=== PATIENT | female | born 1960 | race Caucasian/White ===

== ENCOUNTER → 2018-01-03 06:25 | Outpatient (CLI) | payer MEDICARE, SELFPAY | PROVIDERS: Family Provider Family Medicine; PCP Family Medicine; Visit Provider Surgery | DX: R69 Illness, unspecified (principal) ==

== ENCOUNTER 2018-01-04 06:15 | Day surgery (SDC) | payer MEDICARE, MEDICAID, SELFPAY ==
--- NOTE | 2018-01-03 21:29 | HP.PCM_ITS ---
History and Physical Date of Admission: 01/04/18 HISTORY OF PRESENT ILLNESS 57 year old woman presents for evaluation for a TBSE. She has concerns about an enlarging soft tissue mass on her left temporal parietal scalp that has increased in size over the last several months. She denies any trauma. She denies any recent infection. She has noticed a small amount of alopecia over the soft tissue mass. There is a lesion right shoulder that has increased in size as well over the last several months. It has developed irregular borders. There has been no trauma and no bleeding. She has enlarging lesions on her right lower lateral eyelid and left lower lateral eyelid as well. She denies any visual problems. She denies any trauma. She has also noted increasing lesions on her right forearm and left forearm that have increased in size over the last several months and have developed irregular borders. She denies any infection or bleeding. She denies any trauma. She presents at this time for further evaluation and treatment. PAST MEDICAL HISTORY Arthritis. Asthma. Back pain. Calcium issues. Colon cancer. Chronic headaches. Epilepsy. GERD (gastroesophageal reflux disease). Heart disease. Depression. Pneumonia. Thyroid cancer. Vitamin deficiency. High blood pressure. Chemotherapy and radiation therapy for colon cancer. Chemotherapy and radiation therapy for thyroid cancer. PAST SURGICAL HISTORY colon cancer surgery with chemotherapy and radiation therapy. hysterectomy with BSO. right knee scopes. thyroid cancer surgery with chemotherapy and radiation therapy. ALLERGIES clarithromycin [From Biaxin]. cortisone [Cortisone]. levofloxacin [From Levaquin]. codeine. levetiracetam [From Keppra]. promethazine HCl [From Phenergan]. SODIUM PENTATHOL. MEDICATIONS Calcitriol [Calcitriol]. Divalproex Sodium [Depakote]. Lamotrigine [Lamotrigine]. Levothyroxine [Synthroid]. Omeprazole [Omeprazole]. Valsartan [Diovan]. FAMILY HISTORY Positive for skin cancer. Mother - Anemia, Respiratory disease, Skin cancer, Suicide attempt, Asthma, Arthritis, History of blood transfusion, Cancer, Depression, Heart disease, High cholesterol, History of psychiatric care Father - Asthma, Arthritis, Bowel disease, Colon cancer, Heart disease, Hypertension, High cholesterol, CVA (cerebral vascular accident) Daughter - Anemia, Anxiety, Asthma, Arthritis, Bleeding disorder, Depression, History of psychiatric care, Skin cancer, Suicide attempt Grandmother - Skin cancer SOCIAL HISTORY Smoking Status: Never smoker alcohol intake: never substance use type: does not use REVIEW OF SYSTEMS General - Denies fever, and weight loss. Has fatigue. ENT - Denies nasal congestion and sore throat. Eyes - Denies glaucoma and cataracts. Endocrine - Has thyroid disease. Has heat and cold intolerance. Skin - Has enlarging lesions left temporal parietal scalp, right shoulder, bilateral lower eyelids, right forearm, and left forearm. Musculoskeletal - Has joint pain, joint stiffness, weakness of muscles and joints, back pain, and arthritis. Neuro - Has headaches. Cardiovascular - Has chest pain. Has fatigue. Denies shortness of breath with exertion. Psych - Has depression. Denies anxiety. Has claustrophobia. Respiratory - Has shortness of breath, sleep apnea, asthma. Denies cough. Gastrointestinal - Denies nausea and vomiting. Has diarrhea and constipation. Hematologic - Denies abnormal bruising and bleeding. Genitourinary - Denies hematuria and urinary frequency. PHYSICAL EXAMINATION General - Alert and oriented. HEENT - PERRL. EOMI. Throat is clear. On the left temporal parietal scalp is a 12 mm soft tissue mass. Mobile. Mild alopecia. No evidence of infection. No ulceration. Mass is nontender. On the right lower lateral eyelid is a 5 mm lesion that is slightly raised in configuration. No ulceration. Has irregular borders. Lesion is nontender. On the left lower lateral eyelid is a 4 mm lesion that is slightly raised in configuration. No ulceration. Has irregular borders. Lesion is nontender. Neck - Supple and nontender. No cervical adenopathy. No suspicious lesions noted. Lungs - Clear to auscultation. Heart - Regular rate and rhythm. Abdomen - Soft and nondistended. Extremities - FROM. No axillary adenopathy. No axillary adenopathy. On the right shoulder is a lesion that measures 6 mm. It is slightly raised in configuration. Has irregular borders. No ulceration. Lesion is nontender. On the dorsal aspect right forearm is a 6 mm lesion that is slightly raised in configuration. Has irregular borders. No ulceration. Lesion is nontender. On the dorsal ulnar aspect left forearm is a 1 cm lesions cluster that are slightly raised in configuration. Has irregular borders. No ulceration. Lesions cluster are nontender. Back - No suspicious lesions noted. Neuro - CN II - XII grossly intact. ASSESSMENT 1. 12 mm soft tissue mass left temporal parietal scalp. 2. 6 mm lesion right shoulder. 3. 5 mm lesion right lower lateral eyelid. 4. 4 mm lesion left lower lateral eyelid. 5. 6 mm lesion dorsal aspect right forearm. 6. 1 cm lesions cluster dorsal ulnar aspect left forearm. 7. Family history of skin cancer. PLAN Recommend excision of this soft tissue mass on her left temporal parietal scalp. Depending on how much skin needs to be removed will determine if a skin flap or a skin graft is necessary. Will send tissue to Pathology for analysis to rule out carcinoma. Discussed with the patient that some degree of alopecia may occur after surgery on her scalp. She is aware of that possibility and wishes to proceed. Recommend excision of the lesions on her right shoulder, bilateral lower eyelids , dorsal right forearm, and dorsal ulnar left forearm and send them to Pathology for analysis to rule out carcinoma. If carcinoma is present, then further excision will be done with skin flap or skin graft reconstruction. Surgery will be done on an outpatient basis under local anesthesia and IV sedation. Patient was informed of the risks and complications of the procedure including alternatives to surgery. These were discussed with her personally. She voices understanding and wishes to proceed. Some of the risks and complications were included in a form from the [employer].
[2018-01-04 07:01] VITALS: BP 155/91; PULSE 73; RESP 16; TEMP 35.9; O2SAT 95; BMI 39.0
--- NOTE | 2018-01-04 08:00 | LES_PTH ---
PATIENT: BOYD VELEZ LOC: [facility] [place] U#:[id number] AGE/SX: 57/F ROOM: RE01/04/[address]: Dr. Dm Albert MD : 1960 BED: DIS: 01/04/2018 SPEC #: [id number] RECD: 01/04/18 10:27 STATUS: SEBASTIANPeter JACKY #: [id number] MIAH: 01/04/18 08:[address]: Dm Albert DEPT: SURGICAL PATHOLOGY RECD BY: Tanvir Hannon ENTERED: 01/04/18 12:19 SP TYPE: Lesion OTHR DR: Out of Town Doctor Tissues: A - Skin of forearm, NOS B - Skin of scalp, NOS C - Skin of eyelid, NOS D - Skin of eyelid, NOS E - Skin of upper extremity and shoulder Procedures: Surgery Specimen Level III Surgery Specimen Level IV HEADER OPERATION: Excision soft tissue mass left temporal scalp, lesions bilateral lower eyelid PRE-OP DIAGNOSIS: 12 mm soft tissue mass left temporal parietal scalp; 6 mm cutaneous horn lesion right shoulder, 5 mm lesion right lower lateral eyelid; 4 mm lesion left lower lateral eyelid; 6 mm lesion dorsal aspect right forearm; 1 cm lesion cluster dorsal ulnar aspect left forearm; family history skin cancer TISSUE SUBMITTED: A ? Right forearm lesion, B ? Scalp lesion, C ? Left lower lateral eyelid lesion, D ? Right lower lateral eyelid lesion, E ? Right shoulder lesion MICROSCOPIC DIAGNOSIS A. Right forearm lesion, shave biopsy: Actinic keratosis, hypertrophic type. B. Scalp lesion, biopsy: Trichilemmal cyst. C. Left lower lateral eyelid lesion, biopsy: Actinic keratosis. D. Right lower lateral eyelid lesion, biopsy: Actinic keratosis with seborrheic keratosis-like features. E. Right shoulder lesion, biopsy: Actinic keratosis, hypertrophic type. SJ:valerie 01/05/18 MICROSCOPIC DESCRIPTION Slides are reviewed. GROSS DESCRIPTION A - Received in fixative is one container labeled with the patient's name and designated right forearm lesion. The specimen consists of a shave biopsy of kwong-white skin measuring 0.7 x 0.5 x 0.1 cm. The specimen is inked and submitted entirely in one cassette. It will be sectioned at the time of embedding. B - Received in fixative is one container labeled with the patient's name and designated scalp lesion. The specimen consists of a nodular piece of kwong, indurated tissue measuring 1.2 x 1 x 0.5 cm. The specimen is inked, serially sectioned and submitted entirely in one cassette. C - Received in fixative is one container labeled with the patient's name and designated left lower lateral eyelid lesion. The specimen consists of one irregular fragment of kwong-light brown skin that measures 0.4 x 0.2 x 0.1 cm. The specimen is totally submitted in one cassette. D - Received in fixative is one container labeled with the patient's name and designated right lower lateral eyelid lesion. The specimen consists of a piece of kwong to light-brown skin measuring 0.5 x 0.2 x 0.2 cm. The specimen is totally submitted in one cassette. E - Received in fixative is one container labeled with the patient's name and designated right shoulder lesion. The specimen consists of a piece of kwong-brown skin measuring 0.8 x 0.5 x 0.1 cm. The specimen is inked and submitted entirely in one cassette. It will be serially sectioned at the time of embedding. / SJ:rg 01/04/18 TC:5 CPT: 75122 x4, 39304
[2018-01-04] MEDS: Mupirocin Ointment 22gm Tube 1 APPLIC (08:45)
[2018-01-04] MEDS: Silver Nitrate (BKC) 1 EACH (08:49)
--- NOTE | 2018-01-04 08:57 | OP.PN_ITS ---
Immediate Post-Op Note Date of Procedure: 01/04/18 Primary Surgeon/Physician: Dm Albert yard coordinator: None Pre-Operative Diagnosis: 1. 12 mm soft tissue mass left temporal parietal scalp. 2. 6 mm lesion right shoulder. 3. 5 mm lesion right lower lateral eyelid. 4. 4 mm lesion left lower lateral eyelid. 5. 6 mm lesion dorsal aspect right forearm. 6. Family history of skin cancer. Post-Operative Diagnosis: Same. Surgery/Procedure Performed:: 1. Excision 12 mm soft tissue mass left temporal parietal scalp. 2. Intradermal excision 6 mm lesion right shoulder. 3. Excision 5 mm lesion right lower lateral eyelid. 4. Excision 4 mm lesion left lower lateral eyelid. 5. Intradermal excision 6 mm lesion dorsal aspect right forearm. Description of Surgical Findings:: 57 year old woman presents for evaluation for a TBSE. She has concerns about an enlarging soft tissue mass on her left temporal parietal scalp that has increased in size over the last several months. She denies any trauma. She denies any recent infection. She has noticed a small amount of alopecia over the soft tissue mass. There is a raised, cutaneous horn like lesion right shoulder that has increased in size as well over the last several months. It has developed irregular borders. There has been no trauma and no bleeding. She has enlarging lesions on her right lower lateral eyelid and left lower lateral eyelid as well. She denies any visual problems. She denies any trauma. She has also noted increasing lesions on her right forearm and left forearm that have increased in size over the last several months and have developed irregular borders. She denies any infection or bleeding. She denies any trauma. Today the patient underwent excision 12 mm soft tissue mass left temporal parietal scalp and intradermal excision 6 mm lesion right shoulder and excision 5 mm lesion right lower lateral eyelid and excision 4 mm lesion left lower lateral eyelid and intradermal excision 6 mm lesion dorsal aspect right forearm. Estimated Blood Loss: 5 ml. Specimen's removed: 1. Soft tissue mass left temporal parietal scalp to Pathology. 2. Right shoulder lesion to Pathology. 3. Right lower lateral eyelid lesion to Pathology. 4. Left lower lateral eyelid lesion to Pathology. 5. Lesion dorsal aspect right forearm to Pathology. Drains: None. Type of Anesthesia:: Local MAC - xylocaine with epinephrine and IV sedation. - Admit VTE Documentation VTE Present on Admission: No VTE Mechan Device Prophylaxis: SCD's VTE Pharm Prophylaxis ordered?: No
[2018-01-04 09:07] VITALS: BP 151/73; BP 155/91; PULSE 65; RESP 16; TEMP 36.5; O2SAT 97
--- NOTE | 2018-01-04 09:09 | PCM.DC ---
You will use the following diet at home:: No restrictions Discharge Activity: May not drive while taking narcotic pain medications., May Shower - in two days., - - keep head elevated. no heavy lifting. May shower in (days): 2 May resume sexual activity in: No Restrictions Ice area for (Minutes): 5 - as needed for facial swelling. Weight Bearing Status: Weight bearing as tolerated Lifting Restrictions: 20 lbs. Keep extremity elevated above heart level: - - elevate head. Call your doctor if your incision/area has: Continuous Slow Oozing, Sudden Increased Bleeding, Increased Pain/ Swelling, Increased Redness, Foul Smelling Discharge, Swelling at the incision site Call your doctor if you observe: Fever of 101 or Higher, Coldness, Increased Pain, Shortness of breath, Chest pain, Calf discomfort, Uncontrolled pain Suture Line Care: - - apply antibiotic ointment to suture lines daily. Cleanse incision/area with: - - may get incisions wet in the shower in two days. Allergies/Adverse Reactions: Allergies clarithromycin [From Biaxin] Allergy (Verified 01/04/18 07:00) Rash cortisone [Cortisone] Allergy (Verified 01/04/18 07:00) Swelling levofloxacin [From Levaquin] Allergy (Verified 01/04/18 07:00) Hives Sulfa (Sulfonamide Antibiotics) Allergy (Verified 01/04/18 07:00) Rash codeine Adverse Reaction (Verified 01/04/18 07:00) Nausea/Vom/Diarrhea fluticasone [From Advair Diskus] Adverse Reaction (Verified 01/04/18 07:00) ,headache, heart races levetiracetam [From Keppra] Adverse Reaction (Verified 01/04/18 07:00) Other promethazine HCl [From Phenergan] Adverse Reaction (Verified 01/04/18 07:00) Other salmeterol [From Advair Diskus] Adverse Reaction (Verified 01/04/18 07:00) ,headache, heart races SODIUM PENTATHOL Adverse Reaction (Uncoded 01/04/18 07:00) Other Medications to take at Discharge Calcitriol 0.5 mcg PO DAILY 09/09/13 Lamotrigine 150 mg PO DAILY 09/09/13 Levothyroxine [Synthroid] 175 mcg PO DAILY 09/09/13 Omeprazole 40 mg PO DAILY 09/09/13 Amlodipine [Norvasc] 5 mg PO DAILY 12/28/17 Metoprolol Succinate 50 mg PO DAILY 12/28/17 Clindamycin HCl [Cleocin] 300 mg PO TID #15 cap 01/04/18 Oxycodone HCl/Acetaminophen [Percocet 5/325] 1 tab PO 4X/DAY PRN PRN 5 Days #20 tab 01/04/18 The following prescriptions were given: Oxycodone HCl/Acetaminophen [Percocet 5/325] 1 tab PO 4X/DAY PRN PRN 5 Days #20 tab PRN Reason: Pain Clindamycin HCl [Cleocin] 300 mg PO TID #15 cap Primary Care Physician: [facility] Doctor,Out of [Primary Care Provider] - Test Results: Test results from this visit will be discussed in further detail at your follow-up appointment, if applicable. Please Follow Up With: Dm Albert MD When: one week. call [phone] for appt. Proposed Discharge Date: 01/04/18
[2018-01-04 09:12] VITALS: BP 146/76; BP 155/91; PULSE 64; RESP 16; O2SAT 97
--- NOTE | 2018-01-04 09:12 | DCINST_ITS ---
You will use the following diet at home:: No restrictions Discharge Activity: May not drive while taking narcotic pain medications., May Shower - in two days., - - keep head elevated. no heavy lifting. May shower in (days): 2 May resume sexual activity in: No Restrictions Ice area for (Minutes): 5 - as needed for facial swelling. Weight Bearing Status: Weight bearing as tolerated Lifting Restrictions: 20 lbs. Keep extremity elevated above heart level: - - elevate head. Call your doctor if your incision/area has: Continuous Slow Oozing, Sudden Increased Bleeding, Increased Pain/ Swelling, Increased Redness, Foul Smelling Discharge, Swelling at the incision site Call your doctor if you observe: Fever of 101 or Higher, Coldness, Increased Pain, Shortness of breath, Chest pain, Calf discomfort, Uncontrolled pain Suture Line Care: - - apply antibiotic ointment to suture lines daily. Cleanse incision/area with: - - may get incisions wet in the shower in two days. Allergies/Adverse Reactions: Allergies clarithromycin [From Biaxin] Allergy (Verified 01/04/18 07:00) Rash cortisone [Cortisone] Allergy (Verified 01/04/18 07:00) Swelling levofloxacin [From Levaquin] Allergy (Verified 01/04/18 07:00) Hives Sulfa (Sulfonamide Antibiotics) Allergy (Verified 01/04/18 07:00) Rash codeine Adverse Reaction (Verified 01/04/18 07:00) Nausea/Vom/Diarrhea fluticasone [From Advair Diskus] Adverse Reaction (Verified 01/04/18 07:00) ,headache, heart races levetiracetam [From Keppra] Adverse Reaction (Verified 01/04/18 07:00) Other promethazine HCl [From Phenergan] Adverse Reaction (Verified 01/04/18 07:00) Other salmeterol [From Advair Diskus] Adverse Reaction (Verified 01/04/18 07:00) ,headache, heart races SODIUM PENTATHOL Adverse Reaction (Uncoded 01/04/18 07:00) Other Medications to take at Discharge Calcitriol 0.5 mcg PO DAILY 09/09/13 Lamotrigine 150 mg PO DAILY 09/09/13 Levothyroxine [Synthroid] 175 mcg PO DAILY 09/09/13 Omeprazole 40 mg PO DAILY 09/09/13 Amlodipine [Norvasc] 5 mg PO DAILY 12/28/17 Metoprolol Succinate 50 mg PO DAILY 12/28/17 Clindamycin HCl [Cleocin] 300 mg PO TID #15 cap 01/04/18 Oxycodone HCl/Acetaminophen [Percocet 5/325] 1 tab PO 4X/DAY PRN PRN 5 Days #20 tab 01/04/18 The following prescriptions were given: Oxycodone HCl/Acetaminophen [Percocet 5/325] 1 tab PO 4X/DAY PRN PRN 5 Days #20 tab PRN Reason: Pain Clindamycin HCl [Cleocin] 300 mg PO TID #15 cap Primary Care Physician: [facility] Doctor,Out of [Primary Care Provider] - Test Results: Test results from this visit will be discussed in further detail at your follow- up appointment, if applicable. Please Follow Up With: Dm Albert MD When: one week. call [phone] for appt. Proposed Discharge Date: 01/04/18
[2018-01-04 09:17] VITALS: BP 141/71; BP 155/91; PULSE 63; RESP 16; O2SAT 97
[2018-01-04 09:22] VITALS: BP 141/76; BP 155/91; PULSE 63; RESP 16; TEMP 36.3; O2SAT 96
[2018-01-04 10:13] VITALS: BP 155/91
--- NOTE | 2018-01-04 19:18 | PCM.OPRPT ---
Report of Operation Date of Procedure: 01/04/18 Pre-Operative Diagnosis: 1. 12 mm soft tissue mass left temporal parietal scalp. 2. 6 mm lesion right shoulder. 3. 5 mm lesion right lower lateral eyelid. 4. 4 mm lesion left lower lateral eyelid. 5. 6 mm lesion dorsal aspect right forearm. 6. Family history of skin cancer. Post-Operative Diagnosis: Same. Surgery/Procedure Performed:: 1. Excision 12 mm soft tissue mass left temporal parietal scalp with 12 mm layered closure. 2. Intradermal excision 6 mm lesion right shoulder. 3. Excision 5 mm lesion right lower lateral eyelid. 4. Excision 4 mm lesion left lower lateral eyelid. 5. Intradermal excision 6 mm lesion dorsal aspect right forearm. Description of Surgical Findings:: 57 year old woman presents for evaluation for a TBSE. She has concerns about an enlarging soft tissue mass on her left temporal parietal scalp that has increased in size over the last several months. She denies any trauma. She denies any recent infection. She has noticed a small amount of alopecia over the soft tissue mass. There is a raised lesion right shoulder that has increased in size as well over the last several months. It has developed irregular borders. There has been no trauma and no bleeding. She has enlarging lesions on her right lower lateral eyelid and left lower lateral eyelid as well. She denies any visual problems. She denies any trauma. She has also noted increasing lesions on her right forearm and left forearm that have increased in size over the last several months and have developed irregular borders. She denies any infection or bleeding. She denies any trauma. Recently the lesion on the left forearm has resolved. So will observe that area at this time. If the lesion were to recur in the future, then will re-evaluate for excision at that time. Patient was informed of the risks and complications of the procedure including alternatives to surgery. These were discussed with the patient personally. Patient voices understanding and wishes to proceed. Some of the risks and complications were included in a form from the [employer]. pickler helper: None Type of Anesthesia:: Local MAC - xylocaine with epinephrine and IV sedation. Specimen's removed: 1. Soft tissue mass left temporal parietal scalp to Pathology. 2. Right shoulder lesion to Pathology. 3. Right lower lateral eyelid lesion to Pathology. 4. Left lower lateral eyelid lesion to Pathology. 5. Lesion dorsal aspect right forearm to Pathology. Drains: None. Estimated Blood Loss (mL): 5 ml. Description of Procedure: Patient was taken to OR in supine position and was given IV sedation. The left temporal parietal scalp, bilateral eyelids, right shoulder and right forearm were prepped and draped in the usual fashion. SCD's were placed for DVT prophylaxis. Perioperative antibiotics were given intravenously. The lesions left temporal parietal scalp, bilateral lower eyelids, right shoulder, and right forearm were infiltrated with xylocaine and epinephrine. After waiting 5 minutes for the anesthetic to take effect, an oblique incision was made on the left temporal parietal scalp down into the subcutaneous tissue until the soft tissue mass was seen. It was well-encapsulated. It was dissected free at the level of the underlying fascia and sent to Pathology for analysis to rule out carcinoma. Hemostasis was obtained with electrocautery. The wound was irrigated with saline. The wound was closed in multiple layers with 5-0 Monocryl interrupted sutures for the deep dermis and subcutaneous tissue. The skin was approximated with 5-0 Monocryl simple interrupted sutures. Antibiotic ointment was applied to the incision. The lesions on the right lower lateral eyelid and left lower lateral eyelid were excised in an oblique fashion into the subcutaneous tissue and sent to Pathology for analysis to rule out carcinoma. They were excised with a 1 mm margin in all directions making it a 7 mm excision for the right lower lateral eyelid lesion and a 6 mm excision for the left lower lateral eyelid lesion. Hemostasis was obtained with electrocautery. The lower eyelid wounds were then closed with 6-0 fast absorbing simple interrupted sutures. Antibiotic ointment was applied. Next the lesions right shoulder and dorsal aspect right forearm were excised in an intradermal fashion and sent to Pathology for analysis to rule out carcinoma. Hemostasis obtained with gentle pressure and silver nitrate chemical cauterization. For the lesions that were excised, if carcinoma is present, then further excision will be done with skin flap or skin graft reconstruction. Patient tolerated the procedure well and was sent to PACU in satisfactory condition. Patient will be sent home on antibiotics and pain medication. She will keep her head elevated during the initial postop period. Patient will followup in a week for a wound check and for discussion of the pathology report. Grafts/Implants Used: None. - Complications None. - Admit VTE Documentation VTE Present on Admission: No VTE Mechan Device Prophylaxis: SCD's VTE Pharm Prophylaxis ordered?: No Code Visit Surgery Charges CPT - 39011 ICD-10 - R22.0, Z80.8 22741 R22.0, Z80.8 16659 D49.2, Z80.8 68519 D49.2, Z80.8 24327 D49.2, Z80.8 91814 D49.2, Z80.8
--- NOTE | 2018-01-05 17:19 | OP.PCM_ITS ---
Report of Operation Date of Procedure: 01/04/18 Pre-Operative Diagnosis: 1. 12 mm soft tissue mass left temporal parietal scalp. 2. 6 mm lesion right shoulder. 3. 5 mm lesion right lower lateral eyelid. 4. 4 mm lesion left lower lateral eyelid. 5. 6 mm lesion dorsal aspect right forearm. 6. Family history of skin cancer. Post-Operative Diagnosis: Same. Surgery/Procedure Performed:: 1. Excision 12 mm soft tissue mass left temporal parietal scalp with 12 mm layered closure. 2. Intradermal excision 6 mm lesion right shoulder. 3. Excision 5 mm lesion right lower lateral eyelid. 4. Excision 4 mm lesion left lower lateral eyelid. 5. Intradermal excision 6 mm lesion dorsal aspect right forearm. Description of Surgical Findings:: 57 year old woman presents for evaluation for a TBSE. She has concerns about an enlarging soft tissue mass on her left temporal parietal scalp that has increased in size over the last several months. She denies any trauma. She denies any recent infection. She has noticed a small amount of alopecia over the soft tissue mass. There is a raised lesion right shoulder that has increased in size as well over the last several months. It has developed irregular borders. There has been no trauma and no bleeding. She has enlarging lesions on her right lower lateral eyelid and left lower lateral eyelid as well. She denies any visual problems. She denies any trauma. She has also noted increasing lesions on her right forearm and left forearm that have increased in size over the last several months and have developed irregular borders. She denies any infection or bleeding. She denies any trauma. Recently the lesion on the left forearm has resolved. So will observe that area at this time. If the lesion were to recur in the future, then will re -evaluate for excision at that time. Patient was informed of the risks and complications of the procedure including alternatives to surgery. These were discussed with the patient personally. Patient voices understanding and wishes to proceed. Some of the risks and complications were included in a form from the [employer]. medical assisting program director: None Type of Anesthesia:: Local MAC - xylocaine with epinephrine and IV sedation. Specimen's removed: 1. Soft tissue mass left temporal parietal scalp to Pathology. 2. Right shoulder lesion to Pathology. 3. Right lower lateral eyelid lesion to Pathology. 4. Left lower lateral eyelid lesion to Pathology. 5. Lesion dorsal aspect right forearm to Pathology. Drains: None. Estimated Blood Loss (mL): 5 ml. Description of Procedure: Patient was taken to OR in supine position and was given IV sedation. The left temporal parietal scalp, bilateral eyelids, right shoulder and right forearm were prepped and draped in the usual fashion. SCD's were placed for DVT prophylaxis. Perioperative antibiotics were given intravenously. The lesions left temporal parietal scalp, bilateral lower eyelids, right shoulder, and right forearm were infiltrated with xylocaine and epinephrine. After waiting 5 minutes for the anesthetic to take effect, an oblique incision was made on the left temporal parietal scalp down into the subcutaneous tissue until the soft tissue mass was seen. It was well-encapsulated. It was dissected free at the level of the underlying fascia and sent to Pathology for analysis to rule out carcinoma. Hemostasis was obtained with electrocautery. The wound was irrigated with saline. The wound was closed in multiple layers with 5-0 Monocryl interrupted sutures for the deep dermis and subcutaneous tissue. The skin was approximated with 5-0 Monocryl simple interrupted sutures. Antibiotic ointment was applied to the incision. The lesions on the right lower lateral eyelid and left lower lateral eyelid were excised in an oblique fashion into the subcutaneous tissue and sent to Pathology for analysis to rule out carcinoma. They were excised with a 1 mm margin in all directions making it a 7 mm excision for the right lower lateral eyelid lesion and a 6 mm excision for the left lower lateral eyelid lesion. Hemostasis was obtained with electrocautery. The lower eyelid wounds were then closed with 6-0 fast absorbing simple interrupted sutures. Antibiotic ointment was applied. Next the lesions right shoulder and dorsal aspect right forearm were excised in an intradermal fashion and sent to Pathology for analysis to rule out carcinoma. Hemostasis obtained with gentle pressure and silver nitrate chemical cauterization. For the lesions that were excised, if carcinoma is present, then further excision will be done with skin flap or skin graft reconstruction. Patient tolerated the procedure well and was sent to PACU in satisfactory condition. Patient will be sent home on antibiotics and pain medication. She will keep her head elevated during the initial postop period. Patient will followup in a week for a wound check and for discussion of the pathology report. Grafts/Implants Used: None. - Complications None. - Admit VTE Documentation VTE Present on Admission: No VTE Mechan Device Prophylaxis: SCD's VTE Pharm Prophylaxis ordered?: No Code Visit Surgery Charges CPT - 36780 ICD-10 - R22.0, Z80.8 67282 R22.0, Z80.8 46469 D49.2, Z80.8 40522 D49.2, Z80.8 67915 D49.2, Z80.8 69050 D49.2, Z80.8
== END 2018-01-04 10:18 | disposition home or self-care (01) ==
LOC: SDC 06:16 → AC 06:18
PROVIDERS: Visit Provider Surgery
PROC: (CPT 11402; principal; 2018-01-04 07:45)
DX: L57.0 Actinic keratosis (principal); L72.12 Trichodermal cyst; L82.1 Other seborrheic keratosis; J45.909 Unspecified asthma, uncomplicated; M19.90 Unspecified osteoarthritis, unspecified site; K21.9 Gastro-esophageal reflux disease without esophagitis; Z79.899 Other long term (current) drug therapy; C73 Malignant neoplasm of thyroid gland; C18.9 Malignant neoplasm of colon, unspecified; I10 Essential (primary) hypertension; E78.00 Pure hypercholesterolemia, unspecified
CPT/HCPCS: 00300; 11402; 11422; 11441; 12031; 88304; 88305; J7120; C1876

== ENCOUNTER → 2018-05-06 16:43 | Outpatient (CLI) | payer MEDICARE, MEDICAID, SELFPAY ==
[2018-04-06 10:52] VITALS: BMI 39.9
--- NOTE | 2018-05-06 16:46 | CT_ITS ---
HISTORY: NASAL AIRWAY OBSTRUCTION TECHNIQUE: Helically acquired images were obtained of the paranasal sinuses. A radiation dose optimization technique was used for this scan. IV Contrast dosage and agent: None. COMPARISON: None FINDINGS: The paranasal sinuses are normally developed. Small 3-4 mm benign-appearing osteoma within the anterior ethmoid air cells on the right. The paranasal sinuses are otherwise clear. The ostiomeatal units are patent. Small bony spur of the mid septum which projects to the right. Nasal turbinates are not enlarged. No suspicious nasal airway obstruction is seen. Hyperostosis frontalis interna. CT/Sinus/Facial Bone IMPRESSION: 1. No significant findings. The paranasal sinuses are essentially clear. 2. 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 3. Small bony spur, not unusual, of the mid nasal septum on the right Individualized dose optimization techniques were used for this CT. at 0812 Reported and signed by: Raj Ramon MD Electronically Signed: Raj Ramon, at 8:11 EST Tel , Service support ,
== END ==
PROVIDERS: Family Provider Family Medicine Sports Medicine; PCP Family Medicine Sports Medicine; Referring Provider Surgery; Visit Provider Surgery
DX: J34.2 Deviated nasal septum (principal); S02.2XXS Fracture of nasal bones, sequela; J98.8 Other specified respiratory disorders; R06.00 Dyspnea, unspecified; J34.89 Other specified disorders of nose and nasal sinuses
CPT/HCPCS: 70486

== ENCOUNTER 2024-02-18 11:18 | Day surgery (SDC) | payer MEDICARE, MEDICAID, SELFPAY ==
[2024-02-18] VITALS (13 sets, daily range): BP systolic 112–137; BP diastolic 64–113; PULSE 65–81; RESP 14–94; TEMP 36.1–36.8; O2SAT 92–100; BMI 32.2
--- NOTE | 2024-02-18 11:35 | RAD_ITS ---
STUDY: X-RAY - RIGHT FOOT CLINICAL: Female, 63 years old. RIGHT FIRST METATARSAL ARTHRODESIS TECHNIQUE: 6 fluoroscopic view(s) of the foot. COMPARISON: None. FINDINGS: The images shows surgical instrumentation with an osteotomy deformity at the base of the proximal phalanx of the great toe with subsequent placement of a large metallic staple over the dorsum of the osteotomy defects. New surgical resection of the medial side of the head of the metatarsal bone of the great toe. Corrected hallux valgus deformity. Postoperative changes are seen in the soft tissues. The forefoot is included in the [id number]. The remaining metatarsal bones are unremarkable. RAD/Foot 2 Views IMPRESSION: 1. Status post surgical intervention of the great toe as above Electronically Signed: Lee Martinez MD at 9:12 EDT ,
--- NOTE | 2024-02-18 11:35 | PCM.PRE.AN2 ---
ASA Classification* ASA Classification ASA Classification: 3 Assessment & Plan Anesthesia* Anesthesia Assessment Anesthesia Assessment: Discussed sedation and/or anesthesia options, risks, benefits, and alternatives with patient/parents/legal guardian/POA. Questions invited. The patient/parents/legal guardian/POA seems to understand and agrees to proceed with anesthesia plan. Reviewed the physical assessment, medical history, allergy history and patient home medications list prior to surgery/procedure/anesthetic and documented any changes. Performed airway and anesthesia risk assessments. Anesthesia Type Anesthesia Type: General Anesthesia Focused Assessment* Airway Assessment Mouth opens: >3 cm Mallampati Score: II Focused Labs Anesthesia Preop lab: CBC WBC 9.3 K/mm3 (4.4-11.0) 02/06/16 15:28 RBC 4.20 M/mm3 (4.2-5.4) 02/06/16 15:28 Hgb 12.4 g/dl (12.0-15.0) 02/06/16 15:28 Hct 38.0 % (37-47) 02/06/16 15:28 Plt Count 344 K/mm3 (150-450) 02/06/16 15:28 CHEMISTRY Potassium 3.5 mmol/L (3.5-5.1) 02/06/16 15:28 Sodium 138 mmol/L (136-145) 02/06/16 15:28 BUN 13 mg/dL (7-18) 02/06/16 15:28 Creatinine 1.16 mg/dL (0.55-1.20) 02/06/16 15:28 Glucose 121 mg/dL (70-110) H 02/06/16 15:28 POC Glucose 103 mg/dL (70-110) 09/09/13 15:33 COAG Pre-Assessment Diagnosis/Proposed Procedure Planned Operative Procedure(s): ARTHRODESIS OF 1ST METATARSAL PHALANGEAL JOINT,BLAKE/CHEVRON BUNIONECTOMY OF RIGHT FOOT,SILVER BUNIONECTOMY OF RIGHT FOOT,SIRIA OSTEOTOMY OF RIGHT HALLUX WITH APPLICATION OF A AD SPLINT Anesthesia History Anesthesia History - medical device sales representative: Anesthesia History - medical device sales representative Hx Hospitalization No 02/08/24 13:56 Any Problems With Anesthesia Yes: N,V 02/08/24 13:56 Cholinesterase deficiency No 02/08/24 13:56 You/Your Family Experience No 02/08/24 13:56 fever (hyperthermia) with Relationship Recent Exposure to Contagious No 01/04/18 07:01 Disease Does patient have nerve No 02/08/24 13:56 stimulator Patient instructed to have device shut off --Does patient have Pacemaker or ICD? When Was Last Pacemaker Check QUESTION #4 FULL TEXT: You/Your Family Experience fever (hyperthermia) with Anesthesia Last Oral Intake Last Oral intake: Last Oral Intake NPO since Meds taken in AM with sips of water? Meds patient instructed to take am of surgery PONV PONV - medical device sales representative: PONV - medical device sales representative Female Yes 02/08/24 13:56 HX of Motion Sickness No 02/08/24 13:56 HX of N/V After Surgery Yes 02/08/24 13:56 Non-Smoker Yes 02/08/24 13:56 Duration of Surgery greater Yes 02/08/24 13:56 than 60 minutes Number of Risk Factors 4 02/08/24 13:56 PONV Score Severe Risk 02/08/24 13:56 Height & Weight Height & Weight: Anesthesia: Height & Weight Height 5 ft 6 in 01/20/24 10:23 Respiratory Assessment Respiratory Assessment - medical device sales representative: Respiratory Tract Infection Hx - medical device sales representative Hx Respiratory Tract Infection No 02/08/24 13:56 STOP Sleep Apnea STOP Sleep Apnea - medical device sales representative: STOP Sleep Apnea - medical device sales representative Hx Hypertension Yes: CONTROLLED WITH MED 02/08/24 13:56 Hx Sleep Apnea Yes 02/08/24 13:56 CPAP Yes: NONCOMPLIANT 02/08/24 13:56 BIPAP No 02/08/24 13:56 Do you snore loudly (louder than talking or can be heard Do you often feel tired/ fatigued/ sleepy during daytime? Has anyone observed you stop breathing during sleep? STOP Results Positive 02/08/24 13:56 QUESTION #5 FULL TEXT : Do you snore loudly (louder than talking or can be heard through closed doors)? Tobacco Use History Tobacco Use History - medical device sales representative: Tobacco Use History - medical device sales representative Tobacco Use Smoking Status Never smoker 02/08/24 13:56 Hx Tobacco Use No 02/08/24 13:56 Years Smoking Packs Smoked per Day Smoking Cessation Date was within the last 15 years Hx Smoking Cessation Date Hx Smoking Cessation Counseling Hematologic Medial History Hematologic Hx - medical device sales representative: Hematologic Medical Hx - harp repairer Hx of Blood Transfusion No 02/08/24 13:56 Hx of Transfusion in last 3 No 02/08/24 13:56 Months Date of Last Transfusion (if within last 3 months) Ever experience any problems No 02/08/24 13:56 with transfusion(s)? Specify any problems Hx of Preganancy in last 3 No 02/08/24 13:56 Months Nurse Filling Out Transfusion DSCHRIBER 02/08/24 13:56 & Questions: Date: 02/08/24 02/08/24 13:56 Time: 13:57 02/08/24 13:56 Patient unable to answer at this time (ie. confused, unrespo /Reproduction History /Reproductive History - medical device sales representative: /Reproductive Hx- medical device sales representative Hx Now No 02/08/24 13:56 Gestational Age (in weeks): EDC: Hx Hx Para Hx Section SAB No 02/08/24 13:56 Active Medications Active Medications: Current Medications Generic Name Dose Route Start Last Admin Trade Name Freq PRN Reason Stop Dose Admin Cefazolin Sodium 2 gm/ N/A 20 mls @ 400 mls/hr 02/18/24 13:00 IV 02/18/24 13:02 PREOP ONE Lactated Ringer's 1,000 mls @ 15 mls/hr 02/18/24 11:30 IV 02/21/24 06:09 .Q48H [facility] Protocol PFSH Medical History Loss of hearing Wears glasses Depression Anxiety Thyroid disease Anemia Restless legs Back pain Migraine headache CPAP (continuous positive airway pressure) dependence COPD (chronic obstructive pulmonary disease) Shortness of breath on exertion Neuropathy Leg cramps History of pain when walking Hypertension History of echocardiogram History of stress test Cardiology follow-up encounter History of rheumatic fever MVP (mitral valve prolapse) Epilepsy Seizures GERD (gastroesophageal reflux disease) Cancer Arthritis Home Medications ?Medication ?Instructions ?Recorded ?Last Taken ?Type calcitriol 0.5 mcg capsule 0.5 mcg PO DAILY 09/09/13 Unknown History lamotrigine 100 mg tablet 100 mg PO DAILY 09/09/13 Unknown History levothyroxine 175 mcg tablet 150 mcg PO DAILY 09/09/13 01/04/18 05:00 History 175 MCG omeprazole 40 mg capsule,delayed 40 mg PO DAILY 09/09/13 01/04/18 05:00 History release 40 MG metoprolol succinate 50 mg 50 mg PO DAILY 12/28/17 01/04/18 05:00 History tablet,extended release 24 hr 50 MG amlodipine 5 mg tablet 10 mg PO DAILY 04/06/18 Unknown History famotidine 40 mg tablet 40 mg PO QHS 02/08/24 Unknown History lamotrigine 200 mg tablet 200 mg PO QHS 02/08/24 Unknown History (Lamictal) Allergy/AdvReac Type Severity Reaction Status Date / Time phenytoin (From Dilantin) Allergy Severe Chest Verified 02/08/24 13:51 tightness adhesive tape Allergy Intermediate Rash Verified 02/08/24 13:51 indomethacin Allergy Intermediate PT UNSURE Verified 02/08/24 13:51 OF REACTION sertraline (From Zoloft) Allergy Intermediate PT UNSURE Verified 02/08/24 13:51 OF REACTION venlafaxine (From Effexor) Allergy Intermediate PT UNSURE Verified 02/08/24 13:51 OF REACTION clarithromycin (From Biaxin) Allergy Rash Verified 02/08/24 13:51 cortisone (Cortisone) Allergy Swelling Verified 02/08/24 13:51 levofloxacin (From Levaquin) Allergy Hives Verified 02/08/24 13:51 Sulfa (Sulfonamide Allergy Rash Verified 02/08/24 13:51 Antibiotics) lisinopril AdvReac Intermediate Other Verified 02/08/24 13:51 codeine AdvReac Nausea/Vom/ Verified 02/08/24 13:51 Diarrhea fluticasone (From Advair AdvReac ,headache, Verified 02/08/24 13:51 Diskus) heart races levetiracetam (From Keppra) AdvReac Other Verified 02/08/24 13:51 promethazine HCl (From AdvReac Other Verified 02/08/24 13:51 Phenergan) salmeterol (From Advair AdvReac ,headache, Verified 02/08/24 13:51 Diskus) heart races thiopental (From Pentothal) AdvReac Other Verified 02/08/24 13:51 Family History Mother Anemia Asthma Arthritis History of blood transfusion Cancer Depression Heart disease High cholesterol History of psychiatric care Respiratory disease Skin cancer Suicide attempt Father Asthma Arthritis Bowel disease Cancer Colon cancer Heart disease Hypertension High cholesterol CVA (cerebral vascular accident) Daughter Anemia Anxiety Asthma Arthritis Bleeding disorder Depression History of psychiatric care Skin cancer Suicide attempt Grandmother Skin cancer Surgical History History of esophagogastroduodenoscopy (EGD) Hx of colonoscopy Hx of thyroidectomy Hx of cervical spine surgery Hx of nasal septoplasty History of excision of lesion History of knee surgery History of hysterectomy Social History Smoking Status: Never smoker second hand exposure: No alcohol intake: never substance use type: does not use additional social history: DOES USE ASPIRIN AND IBUPROFEN Review of Systems (Anesthesia) ROS Narrative System reviewed and no additional complaints, except as documented.
[2024-02-18] MEDS: Lactated Ringers 1,000 ML 15 ML IV (11:58)
--- NOTE | 2024-02-18 12:39 | DCINST_ITS ---
Discharge Instructions Diet Discharge Diet: No restrictions Activity Discharge Activity: May Not Drive and May Shower (Utilize cast bag covering to keep dressings clean, dry, and intact to the right foot) Weight Bearing Status: Partial weight bearing (May be protective weightbearing to the right foot and CAM boot to tolerance) Keep extremity elevated above heart level: Right Leg (Elevate right leg at all times of rest for postoperative edema control) Dressing / Incision Call your doctor if you observe: Fever of 101 or Higher, Shortness of breath, Chest pain and Calf discomfort Change Dressing in: do not change dressing Remove Dressing in: leave in place till F/U (Do not change dressing. Leave dressing intact and physician will change dressing at first postoperative appointment.) Cleanse incision/area with: Do not get Incision Wet and Keep Dressing Clean & Dry (Please keep dressing clean, dry, and intact to the right foot and utilize cast bag when when showering) Follow Up Care Please Follow Up With: Jorge Deluca DPM When: Patient has first postoperative appointment with me in office early next week Test Results: Test results from this visit will be discussed in further detail at your follow- up appointment, if applicable. Discharge Plan Admission Attending Provider: Jorge Deluca Primary Care Provider: CHRISTA PORTER Instructions Print Language: Tamazight Discharge Orders/Prescriptions Prescriptions: New aspirin 325 mg capsule 325 mg PO DAILY Qty: 20 0RF doxycycline hyclate 100 mg capsule 100 mg PO DAILY Qty: 10 0RF oxycodone-acetaminophen 5-325 mg tablet 1 tab PO Q8H PRN (Reason: pain) 7 Days Qty: 28 0RF No Action levothyroxine 175 MCG tablet 150 mcg PO DAILY omeprazole 40 MG capsule,delayed release(DR/EC) 40 mg PO DAILY Patient Comments: calcitriol 0.5 MCG capsule 0.5 mcg PO DAILY Patient Comments: lamotrigine 100 MG tablet 100 mg PO DAILY Patient Comments: metoprolol succinate 50 MG tablet extended release 24 hr 50 mg PO DAILY Patient Comments: amlodipine 5 mg tablet 10 mg PO DAILY Patient Comments: TAKE 1 TABLET BY MOUTH EVERY DAY lamotrigine [Lamictal] 200 mg tablet 200 mg PO QHS famotidine 40 mg tablet 40 mg PO QHS Referrals / Follow Up: CHRISTA PORTER [Other] Disposition Disposition (needs filled in before D/C Order can be placed): Home, Self Care
--- NOTE | 2024-02-18 12:44 | RAD_ITS ---
HISTORY: Post-op Bunion procedure. TECHNIQUE: XR Foot Min 3 Views. COMPARISON: Spot images earlier same day. FINDINGS: BONES : Osteotomy and hardware placement at the base of the first proximal phalanx with decreased hallux valgus. Otherwise unremarkable. JOINTS: No dislocation. Mild degenerative change. SOFT TISSUES: Postoperative soft tissue swelling with overlying material. RAD/Foot min 3 Views IMPRESSION: Satisfactory alignment of the right foot status post right first toe postoperative change. Electronically Signed: Verito Valle MD at 11:03 EDT ,
[2024-02-18] MEDS: Cefazolin 2 GM in Syringe IV (13:17)
--- NOTE | 2024-02-18 15:14 | PCM.POST.ANE ---
Anesthesia: Postop Eval I Current Vital Signs Temperature: 97 F Pulse Rate: 71 Blood Pressure: 131/64 Respiratory Rate: 18 Pulse Ox: 95 Assessment Airway patent: Yes Spontaneous unlabored respirations: Yes nausea: No Vomiting: No Anesthesia Complication: No Fluid Hydration Crystalloid volume administer (ml): 1,000 Total IV fluid infused: 1,000 Progress Note Anesthesia document: Postop Eval 1 completed: No
--- NOTE | 2024-02-18 15:38 | POSTOPAN2_ITS ---
Anesthesia Postop Eval I Sum Postop Eval Completion status Anesthesia document: Postop Eval 1 completed: No Anesthesia Postop Eval I Summary Anesthesia Postop Eval I Summary: Anesthesia Postop Eval I: Assessment Summary Airway patent Yes 02/18/24 15:14 PORTFOLIO [email or web address] Spontaneous unlabored Yes 02/18/24 15:14 PORTFOLIO CONSULTANT.CSIR respirations Mental status nausea No 02/18/24 15:14 PORTFOLIO CONSULTANT.CSIR Vomiting No 02/18/24 15:14 PORTFOLIO CONSULTANT.CSIR Anesthesia Postop Eval I: Fluid Summary Crystalloid volume administer 1,000 02/18/24 15:14 PORTFOLIO CONSULTANT.CSIR (ml) Colloids volume administered ( ml) Blood Product volume administered (ml) Total IV fluid infused 1,000 02/18/24 15:14 PORTFOLIO CONSULTANT.CSIR Anesthesia Postop Eval I: Summary Notes Anesthesia Complication No 02/18/24 15:14 PORTFOLIO CONSULTANT.CSIR Anesthesia Complication Comment: Post-operative progress note Anesthesia: Postop Eval II Evaluation Mental status: Awake Pain Level: 2 nausea: No Vomiting: No Progress Note Post-operative progress note: Patient shivering. States its a seizure. Unlikely since patient is talking with us. Will give Ativan, Dilaudid and warm patient to see if it resolves. Complications Anesthesia Complication: No
--- NOTE | 2024-02-18 15:38 | PCM.POSTANE2 ---
Anesthesia Postop Eval I Sum Postop Eval Completion status Anesthesia document: Postop Eval 1 completed: No Anesthesia Postop Eval I Summary Anesthesia Postop Eval I Summary: Anesthesia Postop Eval I: Assessment Summary Airway patent Yes 02/18/24 15:14 RV [email or web address] Spontaneous unlabored Yes 02/18/24 15:14 RV [email or web address].CSIR respirations Mental status nausea No 02/18/24 15:14 RV [email or web address].CSIR Vomiting No 02/18/24 15:14 RV [email or web address].CSIR Anesthesia Postop Eval I: Fluid Summary Crystalloid volume administer 1,000 02/18/24 15:14 RV [email or web address].CSIR (ml) Colloids volume administered ( ml) Blood Product volume administered (ml) Total IV fluid infused 1,000 02/18/24 15:14 RV [email or web address].CSIR Anesthesia Postop Eval I: Summary Notes Anesthesia Complication No 02/18/24 15:14 RV [email or web address].CSIR Anesthesia Complication Comment: Post-operative progress note Anesthesia: Postop Eval II Evaluation Mental status: Awake Pain Level: 2 nausea: No Vomiting: No Progress Note Post-operative progress note: Patient shivering. States its a seizure. Unlikely since patient is talking with us. Will give Ativan, Dilaudid and warm patient to see if it resolves. Complications Anesthesia Complication: No
--- NOTE | 2024-02-18 15:45 | SUR.PHASEI ---
IGLESIA OGDEN AT BEDSIDE, PATIENT RIGHT ARM UNCONTROLLABLY SHAKING,PT IS RESPONSIVE AND ABLE TO ANSWER QUESTIONS. HX SEZIURES. 1MG ATIVAN ORDERED AT THIS TIME PER DR NELSON, AND DILAUDID FOR PAIN.
[2024-02-18] MEDS: Ketorolac 15 MG/ML Vial IV (17:06)
--- NOTE | 2024-02-18 18:32 | OP.PCM_ITS ---
Problems Associated Problem List Diagnoses (1) Hallux valgus (acquired), right foot: (2) Arthritis of foot, right: (3) Pain in right foot: Operative Report (Standard) Operative Information Surgery/Procedure Performed: 1. Silver Bunionectomy Right foot 2. Lynn Osteotomy Right foot Surgeon: Jorge Deluca Date of Procedure: 02/18/24 Procedure Start Time: 13:53 Procedure Stop Time: 15:05 Pre-Operative Diagnosis: 1. Hallux Abductovalgus Deformity Right Foot 2. Primary Osteoarthritis Right foot 3. Pain Right foot Post-Operative Diagnosis: 1. Hallux Abductovalgus Deformity Right Foot 2. Primary Osteoarthritis Right foot 3. Pain Right foot Select all DRAINS/GRAFTS/IMPLANTS that apply: None Type of Anesthesia: General/Regional (Popliteal block performed by anesthesia team) Estimated Blood Loss: <1 mL Specimen collected: No Description of surgery: HPI/indication: This is a 63-year-old female who presented to office on 12/13/2023 for painful hallux abductovalgus deformity of the right foot. She had previously undergone bunionectomy procedure by another provider several years earlier on the left foot. States the previous procedure was a tight rope bunionectomy in which 1 of these ropes did break so she did not return for surgery on her right foot. Patient stated she wanted to find a different provider to address the right foot deformity. In office she did undergo radiographic examination which did demonstrate mild hallux abductovalgus deformity with mild degenerative changes of the medial aspect of the first metatarsophalangeal joint and some arthritic changes to the sesamoids. Following discussions of surgical options patient did return for a reevaluation on 01/03/2024 in addition to procedure planning. On the evaluation she demonstrated no pain with range of motion of the first MTPJ and deformed her corrected position. Hallux correction was minimal with bunion deformity not well reducible. However patient reports only bump pain. She demonstrated no pain to palpation of the sesamoid or with extreme dorsiflexion or plantarflexion. No hypermobility was noted. Options were again discussed with the patient and patient requested to remove the painful bump only. I did discuss all options for correction with her and patient was prepared for 3 possible options when on the table. We had thorough discussion of performing the silver bunionectomy to remove her painful bump alone versus Joshua bunionectomy with an Lynn osteotomy versus performing a primary arthrodesis of the first MTPJ. Patient was in agreement with the decisions but ultimately would like silver bunionectomy as her pain is mostly in the bump. She did return for surgical discussion in which all 3 procedures were further discussed with the patient and daughter present. Risks and complications of each procedure were discussed in detail and typical postoperative period was discussed of each procedure in detail. Discussed overall risks and complications include but are not limited to the following: Pain, continued pain, complex regional pain syndrome, neuritis/numbness, scarring, poor cosmetic result, swelling, dehiscence, overcorrection/under correction, malunion/nonunion, symptomatic hardware, need for further surgery/intervention, recurrence, transfer lesions, hardware failure, floating toe, contracted toe, deviated toe, inability to wear shoe gear, difficulty wearing shoe gear, allergic reaction, blood clot, heart attack, stroke, postoperative arthritis, loss of function, loss of limb, loss of life. Patient voices understanding of these and was able to repeat these back. No promises were made. No guarantees were given. Patient did undergo clearance for surgical intervention by PCP. All diagnostic data was reviewed prior to entering the OR. Operative limb was signed prior to entering the OR. She was scheduled to undergo silver bunionectomy right foot vs Joshua bunionectomy with Lynn osteotomy vs first metatarsophalangeal joint arthrodesis at [facility] [place] on 02/18/2024. Procedure: Under mild sedation patient was brought into the operating room placed on table in supine position. Patient was secured to table with safety belt. Prior to entering the OR patient did undergo popliteal block by anesthesia team in PACU. Following induction of IV anesthesia patient was placed under general anesthetic and at that time a well-padded pneumatic ankle tourniquet was placed about the patient's right ankle. Right hip was then bumped the a blanket bump. Right foot was elevated via a blanket bump. The foot was then scrubbed, prepped, and draped in the usual aseptic manner. An Esmarch bandage was utilized to exsanguinate the right foot and the pneumatic ankle tourniquet was inflated to 250 mmHg. Next, attention was directed to the right foot where there was a hallux abductovalgus deformity noted with prominent painful medial eminence. Fluoroscopic imaging was obtained demonstrating HAV deformity and there was noted to be some mild arthritic changes of the medial eminence and medial base of the hallux. A linear incision was made overlying the site of deformity on the dorsal aspect of the foot medial to the EHL tendon utilizing a #15 blade. Incision was deepened via sharp and blunt dissection and care was taken to identify and retract all vital neurovascular structures. The EHL tendon was then visualized and a linear incision was made medial to this and the tendon was retracted laterally and protected throughout the duration of this case. The capsular tissue was then identified and a linear transection was made dorsally over the first metatarsophalangeal joint and the capsule was reflected medial and lateral exposing the head of the first metatarsal at the operative field. Next, the first metatarsal head was examined for any cartilage defects/arthritic changes. Laterally the cartilage appeared healthy at the first metatarsal head, plantar cartilage was noted to be healthy appearing, and dorsal cartilage appeared healthy at the lateral aspect of the first metatarsal head. Centrally there was some erosive changes to the cartilage however majority of the erosive changes were noted to the dorsal medial aspect of the first metatarsal head where there was denuded cartilage noted. The base of the phalanx dorsally and medially did demonstrate some arthritic changes with some spurring noted. A rongeur was utilized to remove the spurring from the base of the dorsal phalanx and medial phalanx and the portions of bone were passed from the operative field to the table in toto. The base of the phalanx cartilage tissue was examined and noted to be healthy and shiny. At this time given that roughly only the dorsal medial aspect and some portions of the medial aspect of the first metatarsal head demonstrated denuded cartilage with greater than 50% of the cartilage intact and healthy that we would not convert to a first metatarsophalangeal joint arthrodesis. Next, a sagittal saw was utilized to resect the medial eminence and this was passed from the operative field to the table in toto. All rough portions of bone were smoothed utilizing a sagittal saw and bone rasp dorsally of the first metatarsal head and along the medial aspect dorsally on the first metatarsal head. With all rough portions of bone resected and the medial eminence also resected the site was again examined under multiple fluoroscopic views and it is noted there is slight lateral deviation of the hallux remaining and thus it was determined an Fili osteotomy be performed. Lynn osteotomy was performed utilizing sagittal saw and fixated using an Arthrex nitinol staple following AO principle and manufacture guideline. Following fixation the site was again examined utilizing multiple fluoroscopic views with the hallux in rectus position and well aligned with the first metatarsal phalangeal joint. Foot was again loaded on the table to simulate weightbearing with the medial eminence resected and the digit well aligned no further procedure to be performed as clinically deformity had been reduced. This also aligned with the patient's wishes of having only the painful medial eminence bump removed. Following final fluoroscopic images the site was irrigated with copious amounts of normal sterile saline. The deep tissues were then closed utilizing 4-0 Vicryl. Subcutaneous tissues closed utilizing 4-0 M onocryl. The skin was then reapproximated utilizing 3-0 Prolene in simple interrupted fashion. At this time the pneumatic ankle tourniquet was deflated and a prompt hyperemic response was noted to the digits of the right foot. Incision site was then dressed with Betadine soaked Adaptic, 4 x 4 gauze, Kerlix, 4 inch Escobar wrap, and 6 inch Escobar wrap rolled onto the right foot. Patient tolerated the procedure and anesthesia well was transported to PACU with vital signs stable vascular status intact to the right foot. Following procedure I did discuss with family continued postoperative care as outlined in the discharge instructions. Patient will continue to elevate the right foot at all times of rest for postoperative edema control. She is permitted to ambulate in a protective weightbearing fashion utilizing CAM boot to her tolerance. She is to keep dressings clean, dry, and intact to the right foot and utilize cast bag when showering. Patient will take all postoperative medication as instructed. Patient will continue to follow with me in office for continued postoperative care and has appointment early next week. Surgical Findings: See operative note for findings Employee Relations Consultant php developer: Yes Inventory Management Specialist: Tru Farrar DPM PGY-1 Tasks completed by list of first job ideas: Dissecting tissue and Retracting Complications Complications: No Admit VTE Documentation VTE Present on Admission: No VTE Mechan Device Prophylaxis: SCD's VTE Pharm Prophylaxis ordered?: Yes
== END 2024-02-18 18:00 | disposition home or self-care (01) ==
LOC: SDC 11:20 → AC 11:21
PROVIDERS: Referring Provider Student in an Organized Health Care Education/Training Program; Visit Provider Student in an Organized Health Care Education/Training Program
PROC: (CPT 28310; principal; 2024-02-18 12:45)
DX: M20.11 Hallux valgus (acquired), right foot (principal); J44.9 Chronic obstructive pulmonary disease, unspecified; G40.909 Epilepsy, unspecified, not intractable, without status epilepticus; N18.32 Chronic kidney disease, stage 3b; I12.9 Hypertensive chronic kidney disease with stage 1 through stage 4 chronic kidney disease, or unspecified chronic kidney disease; M19.071 Primary osteoarthritis, right ankle and foot; K21.9 Gastro-esophageal reflux disease without esophagitis; Z79.82 Long term (current) use of aspirin; Z79.899 Other long term (current) drug therapy
CPT/HCPCS: 28310; 64445; 73620; 73630; 76000; C1713; J7120; A4216; J0612; J2405; J3490